=== PATIENT | female | born 1985 | race Two or more races ===

== ENCOUNTER 2019-03-01 10:05 | Inpatient (IN) | payer BC ==
[2019-03-01 10:13] VITALS: BMI 25.5
[2019-03-01] MEDS ORDERED: ONDANSETRON 4 MG/2 ML VIAL IVPB ONE (10:36)
[2019-03-01] MEDS ORDERED: FAMOTIDINE 20 MG/50 ML IVPB 20 MG/50 ML MG IVPB ONE ×2 (10:36→10:45)
[2019-03-01] MEDS ORDERED: MAG HYDROX/AL HYDROX/SIMETH 30 ML UNIT-DOSE CUP PO ONE (10:36)
[2019-03-01] MEDS ORDERED: SODIUM CHLORIDE 0.9% 500 ML INFUS.BAG IV ONE (10:36)
[2019-03-01] MEDS ORDERED: MAG HYDROX/AL HYDROX/SIMETH 30 ML UNIT-DOSE CUP ONE (10:45)
[2019-03-01] MEDS ORDERED: ONDANSETRON 4 MG/2 ML VIAL ONE (10:45)
--- NOTE | 2019-03-01 10:46 | PDOC ---
History of Present Illness - General Chief Complaint: Pain Stated Complaint: ABD PAIN Time Seen by Provider: 03/01/19 10:17 History Source: Patient Exam Limitations: No Limitations - History of Present Illness Initial Comments: 03/01/19 10:42 33 yo F w/ no sig PMhx comes in c/o 2 days of diffuse abdominal tenderness mostly in the epigastric area, it feels like a burning and is associated with nausea, multiple episodes of NBNB vomiting and NB diarrhea. It all started after she ate rice and pork, no known sick contacts, no recent travel, no rash. (+)diffuse intermittent headache and lightheadedness, no MONIQUE now. (+)decrease in PO intake, no decrease in urination. Also c/.o 1 day if burning/pain/frequency on urination. NO back pain, no fever/ chills. 03/01/19 10:43 Past History - Past Medical History Allergies/Adverse Reactions: Allergies Allergy/AdvReac Type Severity Reaction Status Date / Time ibuprofen [From Advil] Allergy Verified 03/01/19 10:13 Home Medications: Ambulatory Orders Ranitidine HCl [Zantac] 150 mg PO DAILY PRN 03/01/19 COPD: No - Suicide/Smoking/Psychosocial Hx Smoking History: Never smoked Review of Systems - Review of Systems Able to Perform ROS?: Yes Constitutional: No: Chills, Fever, Malaise, Night Sweats HEENTM: No: Eye Pain, Recent change in vision, Throat Pain Respiratory: No: Cough, Shortness of Breath Cardiac (ROS): No: Chest Pain, Palpitations, Chest Tightness ABD/GI: Yes: Diarrhea, Nausea, Vomiting, Abdominal cramping : No: Dysuria, Hematuria Musculoskeletal: No: Back Pain Integumentary: No: Rash Neurological: Yes: Headache. No: Numbness, Dizziness Psychiatric: Yes: Change in Appetite Endocrine: No: Unexplained Weight Loss *Physical Exam - Vital Signs Last Vital Signs Temp Pulse Resp BP Pulse Ox 98.1 F 68 18 120/64 99 03/01/19 10:10 03/01/19 10:10 03/01/19 10:10 03/01/19 10:10 03/01/19 10:10 - Physical Exam General Appearance: Yes: Nourished. No: Apparent Distress HEENT: positive: CHERYL, Normal ENT Inspection, Normal Voice. negative: Pale Conjunctivae, Scleral Icterus (R), Scleral Icterus (L) Neck: positive: Supple. negative: Decreased range of motion, Tender midline Respiratory/Chest: positive: Lungs Clear, Normal Breath Sounds. negative: Respiratory Distress, Accessory Muscle Use Cardiovascular: positive: Regular Rhythm, Regular Rate Gastrointestinal/Abdominal: positive: Normal Bowel Sounds, Tender (epigastric area, (-)tenderness at McBurney's point, (-)rebound, (-)jiménez's sign), Soft. negative: Guarding, Rebound Musculoskeletal: positive: Normal Inspection. negative: CVA Tenderness, Decreased Range of Motion Extremity: positive: Normal Capillary Refill, Normal Inspection, Normal Range of Motion. negative: Tender, Pedal Edema Integumentary: positive: Normal Color, Dry. negative: Jaundice, Rash Neurologic: positive: Fully Oriented, Alert, Normal Mood/Affect ED Treatment Course - LABORATORY CBC & Chemistry Diagram: 03/01/19 10:30 03/01/19 10:30 Medical Decision Making - Medical Decision Making 03/01/19 10:46 33 yo F w/. likely AGE, Will check Urine, line and labs, will give IV fluids, zofran, pepcid, maalox and reassess 03/01/19 13:56 Pt feels a lot better after meds. sono shows cholelithiasis. LFTs abnormally high, will have to page GI and admit, could be a passed stone. 03/01/19 13:[address] Maza who accepted the admission. WIll put in an EKg and portable CXR. *DC/Admit/Observation/Transfer Diagnosis at time of Disposition: Cholelithiasis Qualifiers: Cholelithiasis location: other site Biliary obstruction: with biliary obstruction Qualified Code(s): K80.81 - Other cholelithiasis with obstruction - Referrals - Patient Instructions - Post Discharge Activity
[2019-03-01 10:59] LABS: BASO % 0.9 % (0-2.0); EOS % 3.6 % (0-4.5); HEMATOCRIT 34.3 % (32.4-45.2); HEMOGLOBIN 10.9 GM/dL (10.7-15.3); LYMPH % 42.5 % (8-40); MCH 23.3 pg (25.7-33.7); MCHC 31.7 g/dl (32.0-36.0); MEAN CELL VOLUME 73.6 fl (80-96); MEAN PLT VOLUME 9.2 fl (7.5-11.1); MONO % 14.2 % (3.8-10.2); NEUT % 38.8 % (42.8-82.8); PLATELET COUNT 294 K/MM3 (134-434); RBC 4.66 M/mm3 (3.60-5.2); RDW 15.6 % (11.6-15.6); WHITE BLOOD COUNT 4.5 K/mm3 (4.0-10.0)
[2019-03-01 11:14] LABS: ALBUMIN 3.6 g/dl (3.4-5.0); ALK PHOS 110 U/L (45-117); ANION GAP 6 MMOL/L (8-16); BILIRUBIN,TOTAL 0.4 mg/dL (0.2-1); BLOOD UREA NITROGEN 12 mg/dL (7-18); CALCIUM 8.1 mg/dL (8.5-10.1); CHLORIDE 110 mmol/L (98-107); CO2 25 mmol/L (21-32); CREATININE 0.6 mg/dL (0.55-1.3); GLUCOSE,RANDOM 87 mg/dL (74-106); LIPASE 94 U/L (73-393); MAGNESIUM 2.1 mg/dL (1.8-2.4); PHOSPHOROUS 2.9 mg/dL (2.5-4.9); POTASSIUM 3.7 mmol/L (3.5-5.1); SGOT/AST 156 U/L (15-37); SGPT/ALT 418 U/L (13-61); SODIUM 141 mmol/L (136-145); TOT PROT 7.2 g/dl (6.4-8.2)
--- NOTE | 2019-03-01 11:15 | PDOC ---
*Physical Exam - Vital Signs Last Vital Signs Temp Pulse Resp BP Pulse Ox 98.1 F 68 18 120/64 99 03/01/19 10:10 03/01/19 10:10 03/01/19 10:10 03/01/19 10:10 03/01/19 10:10 ED Treatment Course - LABORATORY CBC & Chemistry Diagram: 03/04/19 07:00 03/04/19 07:00 - ADDITIONAL ORDERS Additional order review: Laboratory Results 03/01/19 10:30 Sodium 141 Potassium 3.7 Chloride 110 H Carbon Dioxide 25 Anion Gap 6 L BUN 12 Creatinine 0.6 Est GFR (CKD-EPI)AfAm 139.78 Est GFR (CKD-EPI)NonAf 120.61 Random Glucose 87 Calcium 8.1 L Phosphorus 2.9 Magnesium 2.1 Total Bilirubin 0.4 AST 156 H ALT 418 H Alkaline Phosphatase 110 Total Protein 7.2 Albumin 3.6 Lipase 94 Beta HCG, Quant < 1.0 - Medications Given in the ED: ED Medications Discontinued Medications Generic Name Dose Route Start Last Admin Trade Name Congq PRN Reason Stop Dose Admin Al Hydroxide/Mg Hydroxide 30 ml 03/01/19 10:36 03/01/19 10:53 Mylanta Oral Suspension - PO 03/01/19 10:37 30 ml ONCE ONE Administration Famotidine/Sodium Chloride 20 mg in 50 mls @ 100 mls/hr 03/01/19 10:36 10:53 Pepcid 20 Mg Premixed Ivpb - IVPB 03/01/19 11:05 100 mls/hr ONCE ONE Administration Ondansetron HCl 4 mg 03/01/19 10:36 03/01/19 10:53 Zofran Injection IVPB 03/01/19 10:37 4 mg ONCE ONE Administration Sodium Chloride 1,000 ml 03/01/19 10:36 03/01/19 10:53 Normal Saline - IV 03/01/19 10:37 1,000 ml ONCE ONE Administration Medical Decision Making - Medical Decision Making 03/01/19 11:14 Pt seen by the Advanced Practice Provider under my direct supervision Ancillary studies reviewed I agree with plan as outlined by the Advanced Practice Provider RAMÍREZ Moore *DC/Admit/Observation/Transfer Diagnosis at time of Disposition: Cholelithiasis - Discharge Dispostion Condition at time of disposition: Improved - Referrals - Patient Instructions - Post Discharge Activity
[2019-03-01 11:18] LABS: URINE APPEARANCE CLEAR; URINE BILIRUBIN NEGATIVE (NEGATIVE); URINE COLOR YELLOW; URINE GLUCOSE (UA) NEGATIVE (NEGATIVE); URINE KETONE NEGATIVE (NEGATIVE); URINE LEUK ESTERASE NEGATIVE (NEGATIVE); URINE NITRITE NEGATIVE (NEGATIVE); URINE PROTEIN NEGATIVE (NEGATIVE); URINE UROBILINOGEN 0.2 mg/dL (0.2-1.0)
[2019-03-01 11:21] LABS: HCG,QUALITATIVE URINE Negative
[2019-03-01 11:38] LABS: INR 1.08 (0.83-1.09); PROTHROMBIN TIME (PATIENT) 12.7 SEC (9.7-13.0)
[2019-03-01] MEDS ORDERED: CEFTRIAXONE 1,000 MG in DEXTROSE 5%-WATER - 50 ML IVPB ONE (14:13)
--- NOTE | 2019-03-01 14:21 | HP ---
CHIEF COMPLAINT: abdominal pain, nausea, vomitting, diarrhea PCP: None HISTORY OF PRESENT ILLNESS: 33 yof with PMHX of GERD, no PCP, comes with nausea, 3-4 episodes of watery non bloody vomitus ,multiple eipsodes of watery stools and epigastric abdominal pain starting last night after having rj and pork. No other members sick.. Reports her diarrhea has been intermittent for 3 days, worse yesterday, Also long standing h/o abdominal discomfort with fatty foods, so has cut down on fat lately. Intermittent GERD symptoms, take zantac. Denies any fevers, chills, dark or bloody stools or vomitus, weight loss, 12 point ROS done, reports some dysuria, also with minimal oral intake since last night. No recent antibiotics or travel. 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 Independent in ADLs from [facility] Family History: Allergies ibuprofen [From Advil] Allergy (Verified 03/01/19 10:13) HOME MEDICATIONS: Home Medications Medication Instructions Recorded Ranitidine HCl [Zantac] 150 mg PO DAILY PRN 03/01/19 REVIEW OF SYSTEMS 12 point ROS done, neg except above PHYSICAL EXAMINATION Vital Signs - 24 hr 03/01/19 03/01/19 10:10 13:15 Temperature 98.1 F 98.4 F Pulse Rate 68 Pulse Rate [ 58 L Right Radial] Respiratory 18 18 Rate Blood Pressure 120/64 Blood Pressure 100/60 [Left Arm] O2 Sat by Pulse 99 100 Oximetry (%) GENERAL: Awake, alert, and fully oriented, in no acute distress. HEAD: Normal with no signs of trauma. EYES: Pupils equal, round and reactive to light, extraocular movements intact, sclera anicteric, conjunctiva clear. No lid lag. EARS, NOSE, THROAT: Ears normal, nares patent, oropharynx clear without exudates. Mildly dry mucous membrane NECK: Normal range of motion, supple without lymphadenopathy, JVD, or masses. LUNGS: Breath sounds equal, clear to auscultation bilaterally. No wheezes, and no crackles. No accessory muscle use. HEART: Regular rate and rhythm, normal S1 and S2 ABDOMEN: Soft, ND, tenderness in kelsey-umbilical region and most prominent in epigastric and adjacent regions, neg Granados's sign, no RLQ tenderness, neg Rovsing's sign, no voluntary or involuntary guarding or rigidity, pos bowel sounds MUSCULOSKELETAL: Normal range of motion at all joints. No bony deformities or tenderness. No CVA tenderness. UPPER EXTREMITIES: 2+ pulses, warm, well-perfused. No cyanosis. No clubbing. No peripheral edema. LOWER EXTREMITIES: 2+ pulses, warm, well-perfused. No calf tenderness. No peripheral edema. NEUROLOGICAL: AAOx3, power 5/5, facial symmetry, sensation intact to light touchCranial nerves II-XII intact. Normal speech.Gait not observed PSYCHIATRIC: Cooperative. Good eye contact. Tearful but reports for her kids, no SI/HI SKIN: Warm, dry, normal turgor, no rashes or lesions noted, normal capillary refill. Laboratory Results - last 24 hr 03/01/19 03/01/19 03/01/19 10:30 10:30 10:57 WBC 4.5 RBC 4.66 Hgb 10.9 Hct 34.3 MCV 73.6 L MCH 23.3 L MCHC 31.7 L RDW 15.6 Plt Count 294 MPV 9.2 Absolute Neuts (auto) 1.7 Neutrophils % 38.8 L Lymphocytes % 42.5 H Monocytes % 14.2 H Eosinophils % 3.6 Basophils % 0.9 Nucleated RBC % 0 PT with INR 12.70 INR 1.08 Sodium 141 Potassium 3.7 Chloride 110 H Carbon Dioxide 25 Anion Gap 6 L BUN 12 Creatinine 0.6 Est GFR (CKD-EPI)AfAm 139.78 Est GFR (CKD-EPI)NonAf 120.61 Random Glucose 87 Calcium 8.1 L Phosphorus 2.9 Magnesium 2.1 Total Bilirubin 0.4 AST 156 H ALT 418 H Alkaline Phosphatase 110 Total Protein 7.2 Albumin 3.6 Lipase 94 Beta HCG, Quant < 1.0 Urine Color Urine Appearance Urine pH Ur Specific Stirum Urine Protein Urine Glucose (UA) Urine Ketones Urine Blood Urine Nitrite Urine Bilirubin Urine Urobilinogen Ur Leukocyte Esterase Urine HCG, Qual Blood Type Antibody Screen 03/01/19 03/01/19 10:57 11:00 WBC RBC Hgb Hct MCV MCH MCHC RDW Plt Count MPV Absolute Neuts (auto) Neutrophils % Lymphocytes % Monocytes % Eosinophils % Basophils % Nucleated RBC % PT with INR INR Sodium Potassium Chloride Carbon Dioxide Anion Gap BUN Creatinine Est GFR (CKD-EPI)AfAm Est GFR (CKD-EPI)NonAf Random Glucose Calcium Phosphorus Magnesium Total Bilirubin AST ALT Alkaline Phosphatase Total Protein Albumin Lipase Beta HCG, Quant Urine Color Yellow Urine Appearance Clear Urine pH 6.0 Ur Specific Stirum 1.022 Urine Protein Negative Urine Glucose (UA) Negative Urine Ketones Negative Urine Blood Negative Urine Nitrite Negative Urine Bilirubin Negative Urine Urobilinogen 0.2 Ur Leukocyte Esterase Negative Urine HCG, Qual Negative Blood Type A POSITIVE Antibody Screen Negative US results noted ASSESSMENT/PLAN: 33 yof with PMHx of GERD, admitted with nausea, vomiting, diarrhea, found with gall stones and abnormal LFTs -Nausea, vomiting diarrhea, epigastric pain, biliary colic vs choledocholithiasis, vs acute gastroenteritis,low suspicion for PUD -Abnormal LFTs, ?passed stone vs hepatic steatosis -Cholelithiasis -GERD Plan: GI consult,MRCP, serial abdominal exams,. Blood cx, emperic ceftriaxone/flagyl. IVF, NPO, pain control with low dose morphine (given allergy to ibuprofen) Trend LFTs. Surgery consult as suspect need for eventual cholecystectomy pending clinical course and MRCP. PPI DVTPPX lovenox Routine EKG Dispo admit to med surg Plan discussed with patient, at bedside in detail, all questions answered. Care co-ordinated with ED. Total admit time 65 min. Visit type - Emergency Visit Emergency Visit: Yes Care time: The patient presented to the Emergency Department on the above date and was hospitalized for further evaluation of their emergent condition. - New Patient This patient is new to me today: Yes Date on this admission: 03/01/19 - Critical Care Critical Care patient: No
[2019-03-01] MEDS ORDERED: CEFTRIAXONE 1 GM/50 ML BAG ONE (14:30)
[2019-03-01] MEDS ORDERED: MORPHINE SULFATE 2 MG/ML VIAL IVPUSH PRN (14:31)
[2019-03-01] MEDS ORDERED: ONDANSETRON 4 MG/2 ML VIAL IVPUSH PRN (14:31)
[2019-03-01] MEDS ORDERED: DEXTROSE 5%-NORMAL SALINE 1,000 ML IV SCH (14:45)
--- NOTE | 2019-03-01 15:41 | EKG ---
Test Reason : Blood Pressure : / mmHG Vent. Rate : 053 BPM Atrial Rate : 053 BPM P-R Int : 128 ms QRS Dur : 072 ms QT Int : 450 ms P-R-T Axes : 040 039 054 degrees QTc Int : 422 ms POOR DATA QUALITY, INTERPRETATION MAY BE ADVERSELY AFFECTED SINUS BRADYCARDIA OTHERWISE NORMAL ECG NO PREVIOUS ECGS AVAILABLE Confirmed by MD Donnie, Heath ([id number]) on 03/01/2019 3:41:08 PM Referred By: Confirmed By:Heath Fields MD
[2019-03-01] MEDS: D5-1/2NS+20 MEQ KCL - 20 MEQ/1,000 ML INFUS.BAG IV SCH (17:51)
--- NOTE | 2019-03-01 19:40 | CONSULT ---
Consult Consult Specialty:: General Surgery Reason for Consultation:: Cholelithiais - History of Present Illness Chief Complaint: Abdomainal pain History of Present Illness: 33 yo female no significant PMH presents with 2 days of diffuse abdominal tenderness mostly in the epigastric area, it feels like a burning and is associated with nausea, multiple episodes of NBNB vomiting and NB diarrhea. It all started after she ate rice and pork, no known sick contacts, no recent travel, no rash. (+)diffuse intermittent headache and lightheadedness, no MONIQUE now. (+)decrease in PO intake, no decrease in urination. We were asked to assess - History Source History Provided By: Patient, Medical Record Limitations to Obtaining History: No Limitations - Past Medical History ...: No - Alcohol/Substance Use Hx Alcohol Use: No - Smoking History Smoking history: Never smoked Have you smoked in the past 12 months: No - Social History ADL: Independent Place of : Other History of Recent Travel: No Home Medications - Allergies Allergies/Adverse Reactions: Allergies Allergy/AdvReac Type Severity Reaction Status Date / Time ibuprofen [From Advil] Allergy Verified 03/01/19 10:13 - Home Medications Home Medications: Ambulatory Orders Ranitidine HCl [Zantac] 150 mg PO DAILY PRN 03/01/19 Review of Systems - Review of Systems Constitutional: denies: Chills, Fever Eyes: denies: Blind Spots, Recent Change in Vision HENT: denies: Difficult Swallowing, Throat Pain Neck: denies: Pain on Movement, Tenderness Cardiovascular: denies: Chest Pain, Palpitations Respiratory: denies: Cough, SOB Gastrointestinal: reports: Abdominal Pain, Indigestion. denies: Constipation, Diarrhea Genitourinary: denies: Discharge, Dysuria Breasts: reports: No Symptoms Reported. denies: Pain Musculoskeletal: denies: Crepitus, Joint Swelling, Muscle Pain Integumentary: denies: Blister, Lesions Neurological: denies: Seizure, Syncope Endocrine: denies: Unexplained Weight Gain, Unexplained Weight Loss Hematology/Lymphatic: denies: Easily Bruised, Excessive Bleeding Psychiatric: denies: Anxiety, Depression Physical Exam Vital Signs: Vital Signs Temperature 98.8 F 03/01/19 16:04 Pulse Rate 62 03/01/19 16:04 Respiratory Rate 18 03/01/19 16:04 Blood Pressure 115/63 03/01/19 16:04 O2 Sat by Pulse Oximetry (%) 100 03/01/19 16:04 Vital Signs Period Temp Pulse Resp BP Sys/Arevalo Pulse Ox Last 24 Hr 98.8 F-99.6 F 68-80 17-21 96-120/48-67 100-100 Constitutional: Yes: Well Nourished, No Distress, Calm Eyes: Yes: Conjunctiva Clear, EOM Intact HENT: Yes: Atraumatic, Normocephalic Neck: Yes: Supple, Trachea Midline Cardiovascular: Yes: Regular Rate and Rhythm, S1, S2 Respiratory: Yes: Regular, CTA Bilaterally Gastrointestinal: Yes: Normal Bowel Sounds, Soft, Tenderness (RUQ, negative murphys), Tenderness, Epigastrium, Tenderness, Rebound, Vomiting. No: Abdomen, Obese, Ascites Renal/: No: CVA Tenderness - Left, CVA Tenderness - Right Breast(s): No: Discharge from Nipple, Nipple Inversion Musculoskeletal: No: Muscle Pain, Muscle Weakness Extremities: No: Cool, Cyanosis Edema: Yes Peripheral Pulses WNL: Yes Integumentary: No: Jaundice, Skin Tear Neurological: Yes: Alert, Oriented Psychiatric: Yes: Alert, Oriented Labs: CBC, BMP 03/01/19 10:30 03/01/19 10:30 Imaging - Results Chest X-ray: Report Reviewed, Image Reviewed Ultrasound: Report Reviewed, Image Reviewed Problem List - Problems (1) Symptomatic cholelithiasis Assessment/Plan: 33 yo female with symptomatic cholelithiasis, confirmed on US, lowgrade fever, MRCP was clear NPO and IVF hydration IV antibiotics adequate analgesia Discussed with patient risks, benefits and alternatives of laparoscopic possible open cholecystectomy, including but not limited to bleeding, infection , injury to adjacent structures, leak or injury, intraabdominal abscess, incisional hernia, need for further procedures, ; alternatives include antibiotics, delayed or no surgery - risks of this include failure of nonoperative therapy, perforation, sepsis, recurrence, . Patient desires to proceed with operation - will take to OR for above. Informed consent signed for same. Thank you for the opportunity to participate in the care of this patient. Code(s): K80.20 - CALCULUS OF GALLBLADDER W/O CHOLECYSTITIS W/O OBSTRUCTION (2) Biliary colic Code(s): K80.50 - CALCULUS OF BILE DUCT W/O CHOLANGITIS OR CHOLECYST W/O OBST (3) Abdominal pain in female patient Code(s): R10.9 - UNSPECIFIED ABDOMINAL PAIN (4) Cholelithiasis Code(s): K80.20 - CALCULUS OF GALLBLADDER W/O CHOLECYSTITIS W/O OBSTRUCTION Qualifiers: Cholelithiasis location: gallbladder Cholecystitis acuity: acute and chronic Biliary obstruction: without biliary obstruction Qualified Code(s): K80.81 - Other cholelithiasis with obstruction
[2019-03-01] MEDS: PANTOPRAZOLE SODIUM 40 MG VIAL IVPUSH SCH (21:43)
[2019-03-02 08:19] LABS: BASO % 0.7 % (0-2.0); EOS % 3.8 % (0-4.5); HEMATOCRIT 31.6 % (32.4-45.2); HEMOGLOBIN 10.3 GM/dL (10.7-15.3); LYMPH % 38.3 % (8-40); MCH 23.7 pg (25.7-33.7); MCHC 32.5 g/dl (32.0-36.0); MEAN PLT VOLUME 9.4 fl (7.5-11.1); MONO % 14.6 % (3.8-10.2); NEUT % 42.6 % (42.8-82.8); PLATELET COUNT 275 K/MM3 (134-434); RBC 4.33 M/mm3 (3.60-5.2); RDW 15.1 % (11.6-15.6); WHITE BLOOD COUNT 3.5 K/mm3 (4.0-10.0)
[2019-03-02 08:34] LABS: ALBUMIN 3.2 g/dl (3.4-5.0); BILIRUBIN,TOTAL 0.4 mg/dL (0.2-1); CREATININE 0.7 mg/dL (0.55-1.3); MAGNESIUM 2.1 mg/dL (1.8-2.4); PHOSPHOROUS 2.7 mg/dL (2.5-4.9); POTASSIUM 3.7 mmol/L (3.5-5.1); TOT PROT 6.3 g/dl (6.4-8.2)
--- NOTE | 2019-03-02 09:13 | CON.GI ---
Consult - History of Present Illness History of Present Illness: GI CONSULT DICTATED - Past Medical History ...: No - Alcohol/Substance Use Hx Alcohol Use: No - Smoking History Smoking history: Never smoked Have you smoked in the past 12 months: No Home Medications - Allergies Allergies/Adverse Reactions: Allergies Allergy/AdvReac Type Severity Reaction Status Date / Time ibuprofen [From Advil] Allergy Verified 03/01/19 10:13 - Home Medications Home Medications: Ambulatory Orders Ranitidine HCl [Zantac] 150 mg PO DAILY PRN 03/01/19 Physical Exam-GI Vital Signs: Vital Signs Temperature 99.1 F 03/02/19 07:34 Pulse Rate 66 03/02/19 07:34 Respiratory Rate 14 03/02/19 07:34 Blood Pressure 117/59 L 03/02/19 07:34 O2 Sat by Pulse Oximetry (%) 100 03/02/19 08:24 Labs: CBC, BMP 03/02/19 06:30 03/02/19 06:30 INR, PTT INR 1.08 (0.83-1.09) 03/01/19 10:57
[2019-03-02] MEDS ORDERED: cefTRIAXone SODIUM 1 GM VIAL ONE (09:43)
[2019-03-02] MEDS ORDERED: DEXTROSE 5%-WATER - 50 ML IVPB ONE (09:43)
[2019-03-02] MEDS: PANTOPRAZOLE SODIUM 40 MG VIAL IVPUSH SCH ×2 (09:44→21:35)
[2019-03-02] MEDS: CEFTRIAXONE 1 GM in DEXTROSE 5%-WATER - 50 ML IVPB SCH (09:44)
[2019-03-02] MEDS: ENOXAPARIN NA (PORCINE) 40 MG/0.4 ML DISP.SYRIN SQ SCH (09:44)
--- NOTE | 2019-03-02 12:00 | PN ---
Physical Exam: SUBJECTIVE: Patient seen and examined at bedside. Feels better today but still not back to baseline. No nausea or vomiting. Is hungry. Still has abd pain but is improved. OBJECTIVE: Vital Signs Temperature 99.1 F 03/02/19 07:34 Pulse Rate 66 03/02/19 07:34 Respiratory Rate 14 03/02/19 07:34 Blood Pressure 117/59 L 03/02/19 07:34 O2 Sat by Pulse Oximetry (%) 100 03/02/19 08:24 GENERAL: The patient is awake, alert, and fully oriented, in no acute distress. EYES: sclera anicteric, conjunctiva clear. NECK: Trachea midline, full range of motion, supple. LUNGS: Breath sounds equal, clear to auscultation bilaterally HEART: Regular rate and rhythm, S1, S2 without murmur, rub or gallop. ABDOMEN: Soft, nondistended, normoactive bowel sounds. +TTP in all 4 quadrants. EXTREMITIES: 2+ pulses, warm, well-perfused, no edema. NEUROLOGICAL: Cranial nerves II through XII grossly intact. Normal speech. PSYCH: Normal mood, normal affect. SKIN: Warm, dry Laboratory Results - last 24 hr 03/01/19 03/02/19 03/02/19 10:57 06:30 06:30 WBC 3.5 L RBC 4.33 Hgb 10.3 L Hct 31.6 L MCV 73.0 L MCH 23.7 L MCHC 32.5 RDW 15.1 Plt Count 275 MPV 9.4 Absolute Neuts (auto) 1.5 Neutrophils % 42.6 L Lymphocytes % 38.3 Monocytes % 14.6 H Eosinophils % 3.8 Basophils % 0.7 Nucleated RBC % 0 Sodium 141 Potassium 3.7 Chloride 110 H Carbon Dioxide 26 Anion Gap 6 L BUN 7 Creatinine 0.7 Est GFR (CKD-EPI)AfAm 132.87 Est GFR (CKD-EPI)NonAf 114.64 Random Glucose 95 Calcium 8.0 L Phosphorus 2.7 Magnesium 2.1 Total Bilirubin 0.4 Direct Bilirubin AST 59 H ALT 259 H Alkaline Phosphatase 96 Total Protein 6.3 L Albumin 3.2 L Blood Type A POSITIVE Antibody Screen Negative 03/02/19 06:30 WBC RBC Hgb Hct MCV MCH MCHC RDW Plt Count MPV Absolute Neuts (auto) Neutrophils % Lymphocytes % Monocytes % Eosinophils % Basophils % Nucleated RBC % Sodium Potassium Chloride Carbon Dioxide Anion Gap BUN Creatinine Est GFR (CKD-EPI)AfAm Est GFR (CKD-EPI)NonAf Random Glucose Calcium Phosphorus Magnesium Total Bilirubin Direct Bilirubin 0.1 AST ALT Alkaline Phosphatase Total Protein Albumin Blood Type Antibody Screen Active Medications Generic Name Dose Route Start Last Admin Trade Name Freq PRN Reason Stop Dose Admin Enoxaparin Sodium 40 mg 03/02/19 10:00 03/02/19 09:44 Lovenox - SQ 40 mg DAILY ISHA Administration Ceftriaxone Sodium 1 gm/ 50 mls @ 100 mls/hr 03/02/19 10:00 03/02/19 09:44 Dextrose IVPB 100 mls/hr DAILY ISHA Administration Protocol Metronidazole 500 mg in 100 mls @ 100 mls/hr 03/01/19 18:00 03/02/19 09:47 Flagyl 500mg Premixed Ivpb - IVPB 100 mls/hr Q8H-IV ISHA Administration Potassium Chloride/Dextrose/Sod Cl 20 meq in 1,000 mls @ 125 mls/hr 03/01/19 14:45 03/01/19 17:51 D5-1/2ns+20 Meq Kcl - IV 125 mls/hr ASDIR ISHA Administration Morphine Sulfate 0.5 mg 03/01/19 14:31 Morphine Sulfate IVPUSH Q6H PRN PAIN LEVEL 6-10 Ondansetron HCl 4 mg 03/01/19 14:31 Zofran Injection IVPUSH Q6H PRN NAUSEA Pantoprazole Sodium 40 mg 03/01/19 22:00 03/02/19 09:44 Protonix Iv IVPUSH 40 mg BID ISHA Administration ASSESSMENT/PLAN: 33 y/o F w/PMH of GERD admitted for N/V/D and found to have cholelithiasis and elevated LFTs -Abd pain secondary to biliary colic vs acute gastroenteritis vs choledocholithiasis -LFTs improving. Continue to monitor -c/w zofran FL for nausea -c/w ceftriaxone and flagyl -morphine 0.5 mg IV q6h PRN for pain 6-10 -D5 1/2NS +20meq KCl @ 125 ml/hr -MRCP ordered. f/u results -f/u BCx -Surgery consulted. GI consulted -For the OR tomorrow. NPO after midnight -GERD -Protonix 40 mg IV BID -DVT ppx -lovenox -FEN -D5 1/2NS +20meq KCl @ 125 ml/hr -Monitor lytes -NPO after midnight, clear liquid diet currently. -Dispo: Monitor on m/s Visit type - Emergency Visit Emergency Visit: Yes ED Registration Date: 03/01/19 Care time: The patient presented to the Emergency Department on the above date and was hospitalized for further evaluation of their emergent condition. - New Patient This patient is new to me today: Yes Date on this admission: 03/02/19 - Critical Care Critical Care patient: No
[2019-03-02] MEDS: D5-1/2NS+20 MEQ KCL - 20 MEQ/1,000 ML INFUS.BAG IV SCH ×2 (13:46→14:42)
--- NOTE | 2019-03-02 14:24 | PN ---
Teaching Attending Note Name of Resident: Titus Sotelo ATTENDING PHYSICIAN STATEMENT I saw and evaluated the patient. I reviewed the resident's note and discussed the case with the resident. I agree with the resident's findings and plan as documented with exceptions below. SUBJECTIVE: Patient seen and examined. Abdominal pain improved, no new complaints. OBJECTIVE: Vital Signs Period Temp Pulse Resp BP Sys/Arevalo Pulse Ox Last 24 Hr 98.4 F-99.8 F 61-69 14-20 100-117/53-67 100-100 Intake & Output 02/27/19 02/28/19 03/01/19 03/02/19 23:59 23:59 23:59 23:59 Intake Total 250 0 Balance 250 0 Weight 149 lb General: sitting in bed, no acute distress Chest: CTAB, no rales or wheezing Abdomen:soft, upper abdominal and kelsey-umbilical tenderness, most prominent in epigastric and RUQ region, no voluntary or involuntary guarding or rigidity, pos bowel sounds Extremities: no edema Home Medications Medication Instructions Recorded Ranitidine HCl [Zantac] 150 mg PO DAILY PRN 03/01/19 Active Medications Enoxaparin Sodium (Lovenox -) 40 mg SQ DAILY [facility] Last Admin: 03/02/19 09:44 Dose: 40 mg Ceftriaxone Sodium 1 gm/ (Dextrose) 50 mls @ 100 mls/hr IVPB DAILY [facility]; Protocol Last Admin: 03/02/19 09:44 Dose: 100 mls/hr Metronidazole (Flagyl 500mg Premixed Ivpb -) 500 mg in 100 mls @ 100 mls/hr IVPB Q8H-IV [facility] Last Admin: 03/02/19 09:47 Dose: 100 mls/hr Potassium Chloride/Dextrose/Sod Cl (D5-1/2ns+20 Meq Kcl -) 20 meq in 1,000 mls @ 100 mls/hr IV ASDIR [facility] Morphine Sulfate (Morphine Sulfate) 0.5 mg IVPUSH Q6H PRN PRN Reason: PAIN LEVEL 6-10 Ondansetron HCl (Zofran Injection) 4 mg IVPUSH Q6H PRN PRN Reason: NAUSEA Pantoprazole Sodium (Protonix Iv) 40 mg IVPUSH BID [facility] Last Admin: 03/02/19 09:44 Dose: 40 mg Laboratory Results - last 24 hr 03/02/19 03/02/19 03/02/19 06:30 06:30 06:30 WBC 3.5 L RBC 4.33 Hgb 10.3 L Hct 31.6 L MCV 73.0 L MCH 23.7 L MCHC 32.5 RDW 15.1 Plt Count 275 MPV 9.4 Absolute Neuts (auto) 1.5 Neutrophils % 42.6 L Lymphocytes % 38.3 Monocytes % 14.6 H Eosinophils % 3.8 Basophils % 0.7 Nucleated RBC % 0 Sodium 141 Potassium 3.7 Chloride 110 H Carbon Dioxide 26 Anion Gap 6 L BUN 7 Creatinine 0.7 Est GFR (CKD-EPI)AfAm 132.87 Est GFR (CKD-EPI)NonAf 114.64 Random Glucose 95 Calcium 8.0 L Phosphorus 2.7 Magnesium 2.1 Total Bilirubin 0.4 Direct Bilirubin 0.1 AST 59 H ALT 259 H Alkaline Phosphatase 96 Total Protein 6.3 L Albumin 3.2 L MRCP results reviewed ASSESSMENT AND PLAN: 33 yof with PMHx of GERD, admitted with nausea, vomiting, diarrhea, found with gall stones and abnormal LFTs -Acute cholecystitis -Abnormal LFTs, improved -Lower uncomplicated UTI -Cholelithiasis -GERD Plan: MRCP results reviewed. Discussed with Dr. gonzalez. Plan for lap cholecystectomy tomorrow. Clear liquid diet for now, npo after midnight. Follow up GI input. Decrease IVF. Pain control with low dose morphine. Ceftriaxone/flagyl day 2. Blood cx neg so far. Urine cx noted. Dispo in1-2 days after surgery if no new concerns. Plan discussed with patient and nursing.
--- NOTE | 2019-03-02 16:22 | CONS ---
DATE OF CONSULTATION: DATE OF DICTATION: 03/02/2019 The patient is a 33-year-old female with a past medical history of reflux disease, who presented to the hospital with nausea and vomiting and multiple episodes of watery stools with associated epigastric and right upper quadrant abdominal pain. She states she had rice and pork prior to these symptoms starting. She was not the only person eating the rice and pork. Other family members ate it also and did not have any effect. She denies melena, hematochezia, or mucus in the stool. She does admit to chills. She has never had an endoscopic evaluation in the past. She denies any history of jaundice or liver disease, new medications, antibiotics or herbal supplements, or travel. PAST MEDICAL AND SURGICAL HISTORY: As listed in the HPI, with the addition of a section. Allergies to IBUPROFEN. SOCIAL HISTORY: Does not smoke, drink, or use drugs. Lives with her , has 2 children. Home medications include ranitidine. REVIEW OF SYSTEMS: As per the HPI. PHYSICAL EXAMINATION: Vital Signs: Temperature 98, pulse 59, respiratory rate 12, blood pressure 111/59, saturation 100% on room air. General: No acute distress. HEENT: Anicteric sclerae. Cardiovascular: S1, S2, regular rate and rhythm. Lungs: Bilaterally clear to auscultation. Abdomen: Tender in the epigastrium and right upper quadrant without any rebound or guarding. Extremities: No edema. LABORATORY DATA: White blood cell count 3.5, hemoglobin 10, hematocrit 31, MCV 73, platelet count 275, INR 1.08. Sodium 141, potassium 3.7, BUN 7, creatinine 0.7, calcium 8. AST 59, ALT 259, down trending from an ALT of 418, a bilirubin 0.4. Urine is negative. Acute serologies are pending at this time for viral hepatitis. Blood cultures are negative preliminarily. She had an ultrasound, which revealed cholelithiasis. An MRCP was recommended and revealed cholelithiasis, minimal to mild gallbladder over-distention, trace pericholecystic fluid, possible early cholecystitis versus reactive. HIDA scan is to be considered. No evidence of choledocholithiasis and no biliary ductal dilatation was identified on this exam. IMPRESSION: Epigastric abdominal pain and a transaminitis with imaging findings consistent with early cholecystitis. RECOMMENDATION: Trend LFTs daily while hospitalized. There is no sign of choledocholithiasis. She may have actually passed a stone or some sludge, leading to the rise in her liver tests. Follow her viral hepatitis serologies. N.p.o., IV fluids. Antibiotics ceftriaxone and Flagyl can be continued. Surgery evaluation noted. She is scheduled for laparoscopic cholecystectomy tomorrow. Will follow. EDUAR PEREYRA DO LUFMMylene/[id number]
[2019-03-03] MEDS ORDERED: BUPIVACAINE HCL/PF 0.5% (5MG/ML) 10 ML VIAL IJ ONE
[2019-03-03] MEDS: D5-1/2NS+20 MEQ KCL - 20 MEQ/1,000 ML INFUS.BAG IV SCH (06:12)
[2019-03-03 07:22] LABS: EOS % 2.9 % (0-4.5); HEMATOCRIT 33.9 % (32.4-45.2); HEMOGLOBIN 10.8 GM/dL (10.7-15.3); MCH 23.5 pg (25.7-33.7); MCHC 31.9 g/dl (32.0-36.0); MEAN CELL VOLUME 73.7 fl (80-96); MEAN PLT VOLUME 9.3 fl (7.5-11.1); MONO % 16.3 % (3.8-10.2); NEUT % 41.8 % (42.8-82.8); PLATELET COUNT 299 K/MM3 (134-434); RBC 4.59 M/mm3 (3.60-5.2); RDW 15.4 % (11.6-15.6); WHITE BLOOD COUNT 3.8 K/mm3 (4.0-10.0)
[2019-03-03 07:42] LABS: ALBUMIN 3.4 g/dl (3.4-5.0); BILIRUBIN,TOTAL 0.5 mg/dL (0.2-1); CALCIUM 8.4 mg/dL (8.5-10.1); CREATININE 0.7 mg/dL (0.55-1.3); MAGNESIUM 2.3 mg/dL (1.8-2.4); PHOSPHOROUS 2.5 mg/dL (2.5-4.9); POTASSIUM 4.4 mmol/L (3.5-5.1); TOT PROT 6.7 g/dl (6.4-8.2)
[2019-03-03] MEDS: ENOXAPARIN NA (PORCINE) 40 MG/0.4 ML DISP.SYRIN SQ SCH (09:25)
[2019-03-03] MEDS: PANTOPRAZOLE SODIUM 40 MG VIAL IVPUSH SCH ×2 (09:38→21:36)
[2019-03-03] MEDS ORDERED: cefTRIAXone SODIUM 1 GM VIAL ONE (10:13)
[2019-03-03] MEDS ORDERED: DEXTROSE 5%-WATER - 50 ML IVPB ONE (10:13)
[2019-03-03] MEDS ORDERED: LACTATED RINGERS SOLUTION 1,000 ML/1,000 ML INFUS.BAG IV SCH (10:15)
[2019-03-03] MEDS: CEFTRIAXONE 1 GM in DEXTROSE 5%-WATER - 50 ML IVPB SCH (10:20)
--- NOTE | 2019-03-03 10:38 | PN ---
Teaching Attending Note Name of Resident: Titus Sotelo ATTENDING PHYSICIAN STATEMENT I saw and evaluated the patient. I reviewed the resident's note and discussed the case with the resident. I agree with the resident's findings and plan as documented with exceptions below. SUBJECTIVE: patient seen and examined. pain better, no nausea, or concerns. Denies urinary symptoms currently. OBJECTIVE: Vital Signs Period Temp Pulse Resp BP Sys/Arevalo Pulse Ox Last 24 Hr 98.8 F-99.6 F 63-80 17-21 93-120/48-67 100 Intake & Output 02/28/19 03/01/19 03/02/19 03/03/19 23:59 23:59 23:59 23:59 Intake Total 250 1775 1200 Balance 250 1775 1200 Weight 149 lb General: sitting in bed in no acute distress Chest: CTAB, no rales or wheezing Abdomen:Soft, tenderness in epigastrium/RUQ, no voluntary or involuntary guarding or rigidity, pos bowel sounds, Extremities: no edema Home Medications Medication Instructions Recorded Ranitidine HCl [Zantac] 150 mg PO DAILY PRN 03/01/19 Active Medications Enoxaparin Sodium (Lovenox -) 40 mg SQ DAILY [facility] Last Admin: 03/03/19 09:25 Dose: Not Given Ceftriaxone Sodium 1 gm/ (Dextrose) 50 mls @ 100 mls/hr IVPB DAILY [facility]; Protocol Last Admin: 03/03/19 10:20 Dose: 100 mls/hr Metronidazole (Flagyl 500mg Premixed Ivpb -) 500 mg in 100 mls @ 100 mls/hr IVPB Q8H-IV [facility] Last Admin: 03/03/19 09:13 Dose: 100 mls/hr Lactated Ringer's (Lactated Ringers Solution) 1,000 ml in 1,000 mls @ 125 mls/ hr IV ASDIR [facility] Last Admin: 03/03/19 10:25 Dose: 125 mls/hr Morphine Sulfate (Morphine Sulfate) 0.5 mg IVPUSH Q6H PRN PRN Reason: PAIN LEVEL 6-10 Ondansetron HCl (Zofran Injection) 4 mg IVPUSH Q6H PRN PRN Reason: NAUSEA Pantoprazole Sodium (Protonix Iv) 40 mg IVPUSH BID [facility] Last Admin: 03/03/19 09:38 Dose: 40 mg Laboratory Results - last 24 hr 03/03/19 03/03/19 06:00 06:00 WBC 3.8 L RBC 4.59 Hgb 10.8 Hct 33.9 MCV 73.7 L MCH 23.5 L MCHC 31.9 L RDW 15.4 Plt Count 299 MPV 9.3 Absolute Neuts (auto) 1.6 Neutrophils % 41.8 L Lymphocytes % 38.0 Monocytes % 16.3 H Eosinophils % 2.9 Basophils % 1.0 Nucleated RBC % 0 Sodium 140 Potassium 4.4 Chloride 110 H Carbon Dioxide 27 Anion Gap 4 L BUN 5 L Creatinine 0.7 Est GFR (CKD-EPI)AfAm 132.87 Est GFR (CKD-EPI)NonAf 114.64 Random Glucose 104 Calcium 8.4 L Phosphorus 2.5 Magnesium 2.3 Total Bilirubin 0.5 AST 42 H ALT 204 H Alkaline Phosphatase 104 Total Protein 6.7 Albumin 3.4 Microbiology 03/01/19 14:32 Blood - Peripheral Venous Blood Culture - Preliminary NO GROWTH OBTAINED AFTER 24 HOURS, INCUBATION TO CONTINUE FOR 4 DAYS. 03/01/19 14:32 Blood - Peripheral Venous Blood Culture - Preliminary NO GROWTH OBTAINED AFTER 24 HOURS, INCUBATION TO CONTINUE FOR 4 DAYS. 03/01/19 11:00 Urine - Urine Clean Catch Urine Culture - Preliminary Group D Strep Or Entero Coccus ASSESSMENT AND PLAN: 33 yof with PMHx of GERD, admitted with nausea, vomiting, diarrhea, found with gall stones and abnormal LFTs -Acute cholecystitis -Abnormal LFTs, improved -Lower uncomplicated UTI -Cholelithiasis -GERD Plan: MRCP results reviewed. Discussed with Dr. gonzalez. For lap cholecystectomy today. NPO. GI input noted. LFts improved. Follow up Hep panel. Ceftriaxone/flagyl day 3, blood cx neg so far. IVF. Pain control with low dose morphine. Ceftriaxone/flagyl day 2. Blood cx neg so far. Urine cx noted. Dispo dc in 24 hours post op if continues to improve and no new concerns. Plan discussed with patient and nursing in detail, all questions answered.
--- NOTE | 2019-03-03 11:01 | PN ---
Physical Exam: SUBJECTIVE: Patient seen and examined at bedside. Feels better today. Less abd pain, no nausea/vomiting. Is hungry. OBJECTIVE: Vital Signs Temperature 99.0 F 03/03/19 09:00 Pulse Rate 63 03/03/19 09:00 Respiratory Rate 20 03/03/19 09:00 Blood Pressure 93/58 L 03/03/19 09:00 O2 Sat by Pulse Oximetry (%) 100 03/02/19 21:00 GENERAL: The patient is awake, alert, and fully oriented, in no acute distress. EYES: sclera anicteric, conjunctiva clear. NECK: Trachea midline, full range of motion, supple. LUNGS: Breath sounds equal, clear to auscultation bilaterally HEART: Regular rate and rhythm, S1, S2 without murmur, rub or gallop. ABDOMEN: Soft, nondistended, normoactive bowel sounds. TTP in LUQ and epigastric regions mainly. McBurneys point negative. EXTREMITIES: 2+ pulses, warm, well-perfused, no edema. NEUROLOGICAL: Cranial nerves II through XII grossly intact. Normal speech. PSYCH: Normal mood, normal affect. SKIN: Warm, dry Laboratory Results - last 24 hr 03/03/19 03/03/19 06:00 06:00 WBC 3.8 L RBC 4.59 Hgb 10.8 Hct 33.9 MCV 73.7 L MCH 23.5 L MCHC 31.9 L RDW 15.4 Plt Count 299 MPV 9.3 Absolute Neuts (auto) 1.6 Neutrophils % 41.8 L Lymphocytes % 38.0 Monocytes % 16.3 H Eosinophils % 2.9 Basophils % 1.0 Nucleated RBC % 0 Sodium 140 Potassium 4.4 Chloride 110 H Carbon Dioxide 27 Anion Gap 4 L BUN 5 L Creatinine 0.7 Est GFR (CKD-EPI)AfAm 132.87 Est GFR (CKD-EPI)NonAf 114.64 Random Glucose 104 Calcium 8.4 L Phosphorus 2.5 Magnesium 2.3 Total Bilirubin 0.5 AST 42 H ALT 204 H Alkaline Phosphatase 104 Total Protein 6.7 Albumin 3.4 Active Medications Generic Name Dose Route Start Last Admin Trade Name Freq PRN Reason Stop Dose Admin Enoxaparin Sodium 40 mg 03/02/19 10:00 03/03/19 09:25 Lovenox - SQ Not Given DAILY [facility] Ceftriaxone Sodium 1 gm/ 50 mls @ 100 mls/hr 03/02/19 10:00 03/03/19 10:20 Dextrose IVPB 100 mls/hr DAILY [facility] Administration Protocol Metronidazole 500 mg in 100 mls @ 100 mls/hr 03/01/19 18:00 03/03/19 09:13 Flagyl 500mg Premixed Ivpb - IVPB 100 mls/hr Q8H-IV [facility] Administration Lactated Ringer's 1,000 ml in 1,000 mls @ 125 mls/hr 03/03/19 10:15 03/03/19 10:25 Lactated Ringers Solution IV 125 mls/hr ASDIR [facility] Administration Morphine Sulfate 0.5 mg 03/01/19 14:31 Morphine Sulfate IVPUSH Q6H PRN PAIN LEVEL 6-10 Ondansetron HCl 4 mg 03/01/19 14:31 Zofran Injection IVPUSH Q6H PRN NAUSEA Pantoprazole Sodium 40 mg 03/01/19 22:00 03/03/19 09:38 Protonix Iv IVPUSH 40 mg BID ISHA Administration ASSESSMENT/PLAN: 33 y/o F w/PMH of GERD admitted for N/V/D and found to have cholelithiasis and elevated LFTs -Abd pain secondary to biliary colic vs acute gastroenteritis vs choledocholithiasis -LFTs improving. Continue to monitor -c/w zofran [place] for nausea -c/w ceftriaxone and flagyl (day 2) -morphine 0.5 mg IV q6h PRN for pain 6-10 -LR @ 125 ml/hr -MRCP ordered. f/u results -f/u BCx -Surgery consulted. GI consulted -For the OR today -GERD -Protonix 40 mg IV BID -DVT ppx -lovenox held this AM for surgery. -FEN -LR @ 125 ml/hr -Monitor lytes -NPO after midnight, clear liquid diet currently. -Dispo: Monitor on m/s Visit type - Emergency Visit Emergency Visit: Yes ED Registration Date: 03/01/19 Care time: The patient presented to the Emergency Department on the above date and was hospitalized for further evaluation of their emergent condition. - New Patient This patient is new to me today: No - Critical Care Critical Care patient: No
[2019-03-03] MEDS ORDERED: BENZOIN TINCTURE SWABSTICK TP ONE (11:40)
[2019-03-03] MEDS ORDERED: BUPIVACAINE HCL/PF 0.5% (5MG/ML) 10 ML VIAL ONE (11:41)
[2019-03-03] MEDS ORDERED: MIDAZOLAM HCL 2 MG/2 ML SINGLE DOSE VIAL ONE (12:20)
[2019-03-03] MEDS ORDERED: fentaNYL CITRATE 250 MCG/5 ML VIAL ONE (12:20)
--- NOTE | 2019-03-03 12:32 | OP ---
Operative Note - Note: Operative Date: 03/03/19 Pre-Operative Diagnosis: symptomatic cholelithiasis and umbilical hernia Operation: Laparoscopic Cholecystetomy and primary repair of umbilical hernia Findings: umbilical hernia, distended thin walled gall bladder, critical view identified Post-Operative Diagnosis: Same as Pre-op Surgeon: Kirby Nelson Premium Card Cancellation Clerk: Dick Flores Anesthesiologist/FACTORY PROCESS WORKERS: Yudi Rothman Anesthesia: General, Local (0.5% marcaine 18.5ml) Specimens Removed: gallbladder with stones and hernia sac Estimated Blood Loss (mls): 5 Fluid Volume Replaced (mls): 800 Operative Report Dictated: Yes
[2019-03-03] MEDS ORDERED: ceFAZolin SODIUM 1 GM VIAL IVPB ONE (12:46)
[2019-03-03] MEDS ORDERED: ceFAZolin SODIUM 1 GM VIAL ONE (12:46)
[2019-03-03] MEDS ORDERED: DEXAMETHASONE SOD PHOSPHATE 4 MG/1 ML VIAL ONE (12:46)
[2019-03-03] MEDS ORDERED: HYDROmorphone HCl 2 MG/ML VIAL ONE (12:50)
[2019-03-03] MEDS ORDERED: PROPOFOL 20 ML ONE (12:54)
[2019-03-03] MEDS ORDERED: DESFLURANE GAS 240 ML BOTTLE IH ONE (13:10)
[2019-03-03] MEDS ORDERED: NEOSTIGMINE METHYLSULFATE 0.5 MG/ML - 10 ML MDV ONE (13:30)
[2019-03-03] MEDS ORDERED: GLYCOPYRROLATE 0.2 MG/1 ML VIAL ONE (13:30)
[2019-03-03] MEDS ORDERED: MORPHINE SULFATE 2 MG/ML VIAL IVPUSH PRN (13:58)
[2019-03-03 14:09] LABS: HEP.C VIRUS AB <0.1 s/co ratio (0.0-0.9)
[2019-03-03] MEDS: LACTATED RINGERS SOLUTION 1,000 ML/1,000 ML INFUS.BAG IV SCH (17:28)
--- NOTE | 2019-03-03 17:39 | PN.GI ---
GI Progress Note Subjective: Nivia s/p Lap ger and repair of umbilical hernia today States feeling dizzy - Objective Vital Signs: Vital Signs Temperature 98.3 F 03/03/19 15:44 Pulse Rate 88 03/03/19 15:44 Respiratory Rate 20 03/03/19 15:44 Blood Pressure 117/63 03/03/19 15:44 O2 Sat by Pulse Oximetry (%) 99 03/03/19 15:44 Constitutional: Calm Eyes: No: Sclera Icterus Cardiovascular: Yes: Regular Rate and Rhythm. No: Murmur Respiratory: Yes: Diminished (at bases with poor insp effort) Gastrointestinal Inspection: Yes: Other (dressed trochar sites in RUQ and periumbilical region). No: Distention ...Auscultate: Yes: Normoactive Bowel Sounds ...Palpate: Yes: Tenderness. No: Soft ...Percussion: No: Tympanitic Edema: No (No LE edema) Neurological: Yes: Alert Labs: CBC, BMP 03/03/19 06:00 03/03/19 06:00 INR, PTT INR 1.08 (0.83-1.09) 03/01/19 10:57 Hepatic Panel Total Bilirubin 0.5 mg/dL (0.2-1) 03/03/19 06:00 Direct Bilirubin 0.1 mg/dL (0.0-0.2) 03/02/19 06:30 AST 42 U/L (15-37) H 03/03/19 06:00 ALT 204 U/L (13-61) H 03/03/19 06:00 Alkaline Phosphatase 104 U/L (45-117) 03/03/19 06:00 Albumin 3.4 g/dl (3.4-5.0) 03/03/19 06:00 Problem List - Problems (1) Biliary colic Assessment/Plan: S/P Lap ger with umbilical hernia repair Post op care per surgery Monitor LFTs Code(s): K80.50 - CALCULUS OF BILE DUCT W/O CHOLANGITIS OR CHOLECYST W/O OBST
[2019-03-03] MEDS: ONDANSETRON 4 MG/2 ML VIAL IVPUSH PRN (20:45)
--- NOTE | 2019-03-03 20:57 | OP ---
DATE OF OPERATION: 03/03/2019 PREOPERATIVE DIAGNOSES: Symptomatic cholelithiasis, umbilical hernia. POSTOPERATIVE DIAGNOSES: Symptomatic cholelithiasis, umbilical hernia. PROCEDURE: Laparoscopic cholecystectomy and primary repair of umbilical hernia. ATTENDING SURGEON: Kirby Nelson MD RAILWAY TRACTION LINE WORKER: Dick Flores MD ANESTHESIOLOGIST: PAUL Quiroz ANESTHESIA TYPE: General with local. Local consisted of 0.5% Marcaine. A total of 18.5 mL inoculated at the port sites. ESTIMATED BLOOD LOSS: 5 mL. INTRAVENOUS FLUID ADMINISTERED: mL. SPECIMENS: Gallbladder with stones and hernia sac. IMPLANTS: None. BRIEF FINDINGS: Patient had an umbilical hernia which was repaired primarily on exit; a distended, thin-walled gallbladder with critical view identified. INDICATIONS: Patient is a 33-year-old female presenting with a history of abdominal pain after meals. She was counseled regarding risks, benefits, and alternatives to surgical cholecystectomy; signed informed consent; was taken for the procedure. DESCRIPTION OF PROCEDURE: Patient was brought to the operating room, was placed in supine position on the operating table with the lower extremities had SCDs applied. She was given intravenous antibiotics in the form of Ancef 2 g prior to the start of surgery. She was induced with general anesthesia, endotracheally intubated without incident by Anesthesia. A formal timeout was completed, identifying the operative site and procedure. With all parties in agreement, began first with a supraumbilical Bianca entry into the abdomen. It was inscribed in the skin and incised with a 15-blade scalpel. It was deepened and widened through the subcutaneous tissue, entering the hernia sac at its dome. The hernia sac was then debrided from the subcutaneous circumferentially, and the hernia sac was sent for pathologic final confirmation. Upon entry into the abdomen, a finger was used to probe the entry site, clearing adhesions of the anterior fascia and the hernia contents. With this completed, a 0 Vicryl was laid in in a [id number] across to ablate the hernia on completion, and a 12-mm Bianca port was then installed into the abdomen. A pneumoperitoneum was established to 15 mmHg. With this done, the site of the gallbladder and entry site were inspected, appeared to be atraumatic. There was notable [id number]-[id number] on the liver's right lobe, adhesions. These were avoided. We installed additional operative ports at the subxiphoid position and 2 in the right side of the abdomen along the subcostal margin. We then proceeded with retraction of the gallbladder towards the left shoulder. Care was taken then to dissect the cystic duct and cystic artery, avoiding injury to adjacent structures. Next, 5-mm aluminum clips were used to control the structures. Then, they were divided with EndoShears. Once complete, the gallbladder was elevated from its hepatic bed using Bovie cautery under direct visualization. Care was taken to remove it in its entirety and then retrieve it from the umbilical port after resiting the camera to the subxiphoid position with an Endo Catch bag 10 mm from the umbilicus. Once removed, the pneumoperitoneum was re-established, and the site was evaluated. Bile spillage was suctioned from the abdomen using a 5-mm suction, and then, hemostasis was obtained along the gallbladder's bed with Bovie cautery. Additional irrigation was also done to clear the abdomen of any remaining bile spill. The trocars were then removed under direct visualization, pneumoperitoneum relieved, and the port sites were closed. The umbilicus with the 0 Vicryl, which had been laid in a [id number], was tied. At which point, the skin was closed with 4-0 Monocryl and 4-0 Vicryl at the port sites in subcuticular fashion. Skin was cleaned. Sterile dressings were placed including benzoin and Steri-Strips as well as gauze sponges and Tegaderms. The patient was awoken from general anesthesia, having tolerated procedure well. All counts were correct prior to closure of the abdomen. The patient was stable throughout. MD MESSI Mercado/[id number]
[2019-03-03] MEDS: oxyCODONE HCL 5 MG TABLET PO PRN (23:08)
[2019-03-04] MEDS: LACTATED RINGERS SOLUTION 1,000 ML/1,000 ML INFUS.BAG IV SCH (06:16)
[2019-03-04] MEDS: oxyCODONE HCL 5 MG TABLET PO PRN (06:16)
[2019-03-04 06:18] VITALS: TEMP 99.5
[2019-03-04 07:30] LABS: BASO % 0.3 % (0-2.0); HEMATOCRIT 32.1 % (32.4-45.2); HEMOGLOBIN 10.2 GM/dL (10.7-15.3); LYMPH % 6.6 % (8-40); MCH 23.1 pg (25.7-33.7); MCHC 31.8 g/dl (32.0-36.0); MEAN CELL VOLUME 72.7 fl (80-96); MEAN PLT VOLUME 9.3 fl (7.5-11.1); MONO % 8.5 % (3.8-10.2); NEUT % 84.6 % (42.8-82.8); PLATELET COUNT 300 K/MM3 (134-434); RBC 4.41 M/mm3 (3.60-5.2); RDW 15.7 % (11.6-15.6); WHITE BLOOD COUNT 19.4 K/mm3 (4.0-10.0)
[2019-03-04] MEDS: ONDANSETRON 4 MG/2 ML VIAL IVPUSH PRN (08:14)
[2019-03-04 08:24] LABS: ALBUMIN 3.4 g/dl (3.4-5.0); BILIRUBIN,TOTAL 0.8 mg/dL (0.2-1); CALCIUM 8.8 mg/dL (8.5-10.1); CREATININE 0.7 mg/dL (0.55-1.3); POTASSIUM 3.7 mmol/L (3.5-5.1); TOT PROT 6.7 g/dl (6.4-8.2)
[2019-03-04 08:25] LABS: ALBUMIN 3.4 g/dl (3.4-5.0); BILIRUBIN,DIRECT 0.5 mg/dL (0.0-0.2); BILIRUBIN,TOTAL 0.9 mg/dL (0.2-1); TOT PROT 6.6 g/dl (6.4-8.2)
[2019-03-04] MEDS: PANTOPRAZOLE SODIUM 40 MG VIAL IVPUSH SCH (09:25)
--- NOTE | 2019-03-04 09:29 | PN ---
Progress Note, Physician Chief Complaint: s/p lap cholecystectomy under general anesthesia History of Present Illness: post op day one - Current Medication List Current Medications: Active Medications Acetaminophen (Ofirmev Injection -) 1,000 mg IVPB ONCE ONE Stop: 03/04/19 09:23 Enoxaparin Sodium (Lovenox -) 40 mg SQ DAILY [facility] Fentanyl (Sublimaze Injection -) 50 mcg IVPUSH [id number] PRN PRN Reason: PAIN-PACU ORDER X 4 DOSES ONLY Ceftriaxone Sodium 1 gm/ (Dextrose) 50 mls @ 100 mls/hr IVPB DAILY [facility]; Protocol Metronidazole (Flagyl 500mg Premixed Ivpb -) 500 mg in 100 mls @ 100 mls/hr IVPB Q8H-IV [facility] Last Admin: 03/04/19 01:00 Dose: 100 mls/hr Lactated Ringer's (Lactated Ringers Solution) 1,000 ml in 1,000 mls @ 125 mls/ hr IV ASDIR [facility] Last Admin: 03/04/19 06:16 Dose: 125 mls/hr Ketorolac Tromethamine (Toradol Injection -) 30 mg IVPUSH ONCE ONE Stop: 03/04/19 09:23 Morphine Sulfate (Morphine Sulfate) 0.5 mg IVPUSH Q6H PRN PRN Reason: PAIN LEVEL 6-10 Ondansetron HCl (Zofran Injection) 4 mg IVPUSH Q6H PRN PRN Reason: NAUSEA Last Admin: 03/04/19 08:14 Dose: 4 mg Oxycodone HCl (Roxicodone -) 5 mg PO Q4H PRN PRN Reason: PAIN LEVEL 1-5 Last Admin: 03/04/19 06:16 Dose: 5 mg Pantoprazole Sodium (Protonix Iv) 40 mg IVPUSH BID [facility] Last Admin: 03/03/19 21:36 Dose: 40 mg - Objective Vital Signs: Vital Signs Temperature 99.5 F 03/04/19 06:00 Pulse Rate 94 H 03/04/19 06:00 Respiratory Rate 20 03/04/19 06:00 Blood Pressure 119/66 03/04/19 06:00 O2 Sat by Pulse Oximetry (%) 100 03/03/19 21:00 Constitutional: Yes: Well Nourished Cardiovascular: Yes: WNL Respiratory: Yes: WNL Gastrointestinal: Yes: Tenderness Labs: CBC, BMP 03/04/19 07:00 03/04/19 07:00 INR, PTT INR 1.08 (0.83-1.09) 03/01/19 10:57 Assessment/Plan complaining of nausea that is relieved with zofran, pain persistent despite oxycodone, which she says is making her dizzy. Ofirmev and toradol were ordered one time doses for non narcotic pain relief. otherwise dept of anesthesia will sign off care as there were no post anesthetic complications.
[2019-03-04] MEDS ORDERED: ACETAMINOPHEN 1000 MG/100 ML VIAL (NON FORMULARY) IVPB ONE (09:30)
[2019-03-04] MEDS ORDERED: KETOROLAC TROMETHAMINE 30 MG/1 ML VIAL IVPUSH ONE (09:30)
[2019-03-04] MEDS ORDERED: CEFTRIAXONE 1 GM in DEXTROSE 5%-WATER - 50 ML IVPB SCH (10:00)
[2019-03-04] MEDS ORDERED: ENOXAPARIN NA (PORCINE) 40 MG/0.4 ML DISP.SYRIN SQ SCH (10:00)
[2019-03-04] MEDS ORDERED: DEXTROSE 5%-WATER - 50 ML IVPB ONE (11:02)
[2019-03-04] MEDS ORDERED: cefTRIAXone SODIUM 1 GM VIAL ONE (11:02)
[2019-03-04] MEDS ORDERED: ACETAMINOPHEN 500 MG TABLET (FP) PO PRN (11:12)
[2019-03-04 11:36] VITALS: BP 102/68; PULSE 96
--- NOTE | 2019-03-04 13:31 | PN ---
Progress Note, Physician History of Present Illness: covering for Dr. Nelson: s/p juan cyr for symptomatic cholelithiasis with umbilical hernia repair ( primary) seen and examined in room with present reports voiding, pain managed with meds (tylenol), tolerating diet feeling better overall - Current Medication List Current Medications: Active Medications Acetaminophen (Tylenol -) 500 mg PO Q6H PRN PRN Reason: PAIN OR FEVER Enoxaparin Sodium (Lovenox -) 40 mg SQ DAILY [facility] Last Admin: 03/04/19 09:25 Dose: 40 mg Ceftriaxone Sodium 1 gm/ (Dextrose) 50 mls @ 100 mls/hr IVPB DAILY [facility]; Protocol Last Admin: 03/04/19 11:04 Dose: 100 mls/hr Metronidazole (Flagyl 500mg Premixed Ivpb -) 500 mg in 100 mls @ 100 mls/hr IVPB Q8H-IV ISHA Last Admin: 03/04/19 09:25 Dose: 100 mls/hr Lactated Ringer's (Lactated Ringers Solution) 1,000 ml in 1,000 mls @ 125 mls/ hr IV ASDIR [facility] Last Admin: 03/04/19 06:16 Dose: 125 mls/hr Morphine Sulfate (Morphine Sulfate) 0.5 mg IVPUSH Q6H PRN PRN Reason: PAIN LEVEL 6-10 Ondansetron HCl (Zofran Injection) 4 mg IVPUSH Q6H PRN PRN Reason: NAUSEA Last Admin: 03/04/19 08:14 Dose: 4 mg Oxycodone HCl (Roxicodone -) 5 mg PO Q4H PRN PRN Reason: PAIN LEVEL 1-5 Last Admin: 03/04/19 06:16 Dose: 5 mg Pantoprazole Sodium (Protonix Iv) 40 mg IVPUSH BID [facility] Last Admin: 03/04/19 09:25 Dose: 40 mg - Objective Vital Signs: Vital Signs Temperature 99.5 F 03/04/19 10:00 Pulse Rate 96 H 03/04/19 10:00 Respiratory Rate 20 03/04/19 10:00 Blood Pressure 102/68 03/04/19 10:00 O2 Sat by Pulse Oximetry (%) 98 03/04/19 09:00 Constitutional: Yes: Well Nourished, No Distress, Calm Eyes: Yes: Conjunctiva Clear, EOM Intact. No: Sclera Icterus HENT: Yes: Atraumatic Gastrointestinal: Yes: Soft, Distention (mild), Tenderness (mild RUQ, less RLQ, also incisional at umbilicus) Integumentary: Yes: Incision (x4 dressed). No: Jaundice, Rash Wound/Incision: Yes: Steri Strips (under dressings), Dressing Dry and Intact ( x3 - umbilical intact but with some serous drainage - changed for clean dressing ). No: Dressing Removed (except umbilical changed for clean) Neurological: Yes: Alert, Oriented Labs: CBC, BMP 03/04/19 07:00 03/04/19 07:00 Problem List - Problems (1) Symptomatic cholelithiasis Assessment/Plan: POD1 s/p laparoscopic cholecystectomy with umbilical hernia repair doing well tolerating diet, pain controlled with meds OOB/ambulate stop IVF umbilical dressing changed pt to remove all outer dressings tomorrow and then may shower f/u 2 weeks instructions in d/c plan ok for d/c home from surgical standpoint Code(s): K80.20 - CALCULUS OF GALLBLADDER W/O CHOLECYSTITIS W/O OBSTRUCTION (2) Umbilical hernia without mention of obstruction or gangrene Code(s): K42.9 - UMBILICAL HERNIA WITHOUT OBSTRUCTION OR GANGRENE Qualifiers: Obstruction and gangrene presence: without obstruction or gangrene Qualified Code(s): K42.9 - Umbilical hernia without obstruction or gangrene (3) RUQ pain Code(s): R10.11 - RIGHT UPPER QUADRANT PAIN
--- NOTE | 2019-03-04 16:04 | PN ---
Teaching Attending Note Name of Resident: Titus Sotelo ATTENDING PHYSICIAN STATEMENT I saw and evaluated the patient. I reviewed the resident's note and discussed the case with the resident. I agree with the resident's findings and plan as documented. SUBJECTIVE: patient with some pain at the incision site but otherwise without complaint. No cp, sob, n/v. OBJECTIVE: Last Vital Signs Temp Pulse Resp BP Pulse Ox 37.5 C 96 H 20 102/68 98 03/04/19 10:00 03/04/19 10:00 03/04/19 10:00 03/04/19 10:00 03/04/19 09:00 Gen: nad Pulm: ctab w/o w/r/r CV: rrr w/o m/r/g Abd: +bs, s/nd, TTP at incision site but minimal Ext: no c/c/e CBC, BMP 03/04/19 07:00 03/04/19 07:00 Ms Cruz is a pleasant 33 year old female with abdominal pain and found to have cholelithiasis. She was seen by surgery and underwent lap ger. She has leukocytosis after this but suspect this is inflammatory. She is tolerating her diet. She was seen by surgery and cleared for discharge home. She is medically stable for discharge. Problem List - Problems (1) Symptomatic cholelithiasis Code(s): K80.20 - CALCULUS OF GALLBLADDER W/O CHOLECYSTITIS W/O OBSTRUCTION
--- NOTE | 2019-03-06 18:34 | PATH ---
Surgical Pathology Report Patient Name: SHAYLA RICHARDSON [facility]. Rec. #: [id number] /Age/Gender: 1985 (Age: 33) / F Account: [id number] Location: [address] [place] [address]/[facility] Taken: 03/03/2019 Received: 03/04/2019 Reported: 03/06/2019 Physicians: Kirby Nelson M.D. Specimen(s) Received A: GALLBLADDER B: UMBILICAL HERNIA SAC Clinical History Cholelithiasis and umbilical hernia Final Diagnosis A. GALLBLADDER, LAPAROSCOPIC CHOLECYSTECTOMY: CHRONIC CHOLECYSTITIS, CHOLELITHIASIS, AND CHOLESTEROLOSIS. ONE BENIGN PERIDUCTAL LYMPH NODES (0/1). B. UMBILICAL HERNIA SAC, UMBILICAL HERNIA REPAIR: FIBROADIPOSE TISSUE COMPATIBLE WITH HERNIA SAC. Electronically Signed Tia Garza M.D. Gross Description A. Received in formalin, labeled "gallbladder," is a 6.3 x 2.8 x 2.6 cm. gallbladder with a 0.2 cm. in length portion of cystic duct attached. There is a 0.9 cm in greatest dimension periductal lymph node present. The outer surface is duarte green and varies from smooth to shaggy. The lumen contains green, tenacious bile as well as multiple yellow, irregular choleliths ranging from 0.2-1.8 cm in greatest dimension. The mucosa is green and velvety. The wall of the gallbladder averages 0.1 cm. in thickness. [employer] sections are submitted in one cassette. B. Received in formalin labeled "umbilical hernia sac," is a 3.0 x 1.0 x 0.3 cm duarte-yellow portion of fibrous tissue with attached fat, consistent with a hernia sac. Philanthropy Officer sections are submitted in one cassette. /03/05/2019 saudi03/05/2019
== END 2019-03-04 16:44 | disposition home or self-care (01) | DRG 418 ==
LOC: JER 10:05 → JERBED 14:11 → J6S 15:49
PROVIDERS: ADMIT Hospitalist; ATTEND Internal Medicine
PROC: 0FT44ZZ Resection of Gallbladder, Percutaneous Endoscopic Approach (ICD-10-PCS; 2019-03-03)
PROC: 0WQF4ZZ Repair Abdominal Wall, Percutaneous Endoscopic Approach (ICD-10-PCS; principal; 2019-03-03 12:00)
DX: K80.20 Calculus of gallbladder without cholecystitis without obstruction (principal); N39.0 Urinary tract infection, site not specified; K21.9 Gastro-esophageal reflux disease without esophagitis; K42.9 Umbilical hernia without obstruction or gangrene; R74.0 Nonspecific elevation of levels of transaminase and lactic acid dehydrogenase [LDH]; R10.11 Right upper quadrant pain; R94.5 Abnormal results of liver function studies; B95.2 Enterococcus as the cause of diseases classified elsewhere
CPT/HCPCS: 36415; 71045-TC-FY; 74182-TC; 76705-TC; 80053; 80074; 80076; 81003; 82248; 83690; 83735; 84100; 84702; 84703; 85025; 85610; 86850; 86900; 86901; 87040; 87086; 87186; 88302-TC; 88304-TC; 93005; 93010; 94760; 99284-25; J0131